=== PATIENT | male | born 1985 | race Caucasian/White ===

== ENCOUNTER → 2016-05-20 | Outpatient (CLI) | payer MEDICARE, BC, OTHER ==
[2016-05-20 11:56] LABS: Basophils # (A) 0.1 k/uL (0-0.2); Basophils % (A) 1 %; CH 29.6; CHCM 33.7; Eosinophils # (A) 0.5 k/uL (0-0.7); Eosinophils % (A) 6 %; HCT 51.2 % (39.0-53.0); HDW 2.45; HGB 16.9 gm/dL (13.0-17.5); Luc # (Auto) 0.21; Luc % (Auto) 3; Lymphocytes # (A) 2.4 k/uL (1.0-4.8); Lymphocytes % (A) 32 %; MCH 29.1 pg (25.0-35.0); MCV 88.1 fL (80.0-100.0); Mean Platelet Volume 8.2; Monocytes # (A) 0.7 k/uL (0-1.0); Monocytes % (A) 10 %; Neutrophils # (A) 3.6 k/uL (1.3-7.7); Neutrophils % (A) 48 %; RBC 5.81 m/uL (4.30-5.90); WBC 7.5 k/uL (3.8-10.6); WBC (Perox) 7.22
== END | disposition home or self-care (01) ==
LOC: LABWHC1 11:10
PROVIDERS: ATTEND Psychiatry & Neurology Neurology
DX: R56.1 Post traumatic seizures (principal)
CPT/HCPCS: 36415; 80164; 84450; 84460; 85025

== ENCOUNTER → 2016-11-04 | Outpatient (CLI) | payer MEDICARE, BC, OTHER ==
[2016-11-04 11:05] LABS: Basophils # (A) 0.1 k/uL (0-0.2); Basophils % (A) 1 %; CH 29.7; CHCM 33.1; Eosinophils # (A) 0.2 k/uL (0-0.7); Eosinophils % (A) 3 %; HCT 49.7 % (39.0-53.0); HDW 2.42; HGB 16.3 gm/dL (13.0-17.5); Luc # (Auto) 0.22; Luc % (Auto) 3; Lymphocytes # (A) 1.8 k/uL (1.0-4.8); Lymphocytes % (A) 28 %; MCH 29.5 pg (25.0-35.0); MCHC 32.8 g/dL (31.0-37.0); MCV 90.1 fL (80.0-100.0); Mean Platelet Volume 8.4; Monocytes # (A) 0.7 k/uL (0-1.0); Monocytes % (A) 10 %; Neutrophils # (A) 3.6 k/uL (1.3-7.7); Neutrophils % (A) 54 %; RBC 5.51 m/uL (4.30-5.90); RDW 12.6 % (11.5-15.5); WBC 6.5 k/uL (3.8-10.6); WBC (Perox) 6.53
== END ==
LOC: LABWHC1 10:23
PROVIDERS: ATTEND Psychiatry & Neurology Neurology
DX: R56.1 Post traumatic seizures (principal)
CPT/HCPCS: 36415; 80164; 84450; 84460; 85025

== ENCOUNTER → 2017-08-18 | Outpatient (CLI) | payer BC, MEDICARE, OTHER ==
[2017-08-18 10:49] LABS: Basophils # (A) 0.1 k/uL (0-0.2); Basophils % (A) 1 %; Eosinophils # (A) 1.3 k/uL (0-0.7); Eosinophils % (A) 18 %; HCT 50.5 % (39.0-53.0); HGB 16.8 gm/dL (13.0-17.5); Lymphocytes % (A) 28 %; MCH 29.6 pg (25.0-35.0); MCHC 33.3 g/dL (31.0-37.0); MCV 88.9 fL (80.0-100.0); Mean Platelet Volume 8.4; Monocytes # (A) 0.6 k/uL (0-1.0); Monocytes % (A) 9 %; Neutrophils # (A) 3.1 k/uL (1.3-7.7); Neutrophils % (A) 42 %; Platelet Count 154 k/uL (150-450); RBC 5.67 m/uL (4.30-5.90); RDW 13.2 % (11.5-15.5); WBC 7.3 k/uL (3.8-10.6)
[2017-08-18 11:02] LABS: Valproic Acid (Depakene) 60.1 ug/mL
== END | disposition home or self-care (01) ==
LOC: LABWHC1 10:20
PROVIDERS: ATTEND Psychiatry & Neurology Neurology
DX: R56.1 Post traumatic seizures (principal)
CPT/HCPCS: 36415; 80164; 84450; 84460; 85025

== ENCOUNTER 2022-01-02 17:35 | Emergency (ER) | payer MEDICARE, OTHER ==
[2022-01-02 18:22] VITALS: BP 124/82; PULSE 92; RESP 22; TEMP 97.8
--- NOTE | 2022-01-02 20:39 | ED ---
Skin/Abscess/FB HPI - General Chief complaint: Recheck/Abnormal Lab/Rx Stated complaint: poss parasites Time Seen by Provider: 01/02/22 18:58 Source: family, RN notes reviewed Mode of arrival: ambulatory Limitations: altered mental status, physical limitation - History of Present Illness Initial comments: This is a 36-year-old male who presents to the emergency department for possible parasites. 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 He does point to his rectum and complain of pain. His mother, who is with him, is not sure how long this has been there. She did bring him to the emergency department with her out of concern for parasites and she is being evaluated as well. States that there have been "black dots ", in his stool and in his bed for the last several days. MD complaint: insect bite/sting - Related Data Previous Rx's Medication Instructions Recorded Albendazole [Albenza] 400 mg PO DIRECTED #4 tablet 01/02/22 Allergies Allergy/AdvReac Type Severity Reaction Status Date / Time No Known Allergies Allergy Verified 01/02/22 18:22 Review of Systems ROS Statement: Those systems with pertinent positive or pertinent negative responses have been documented in the HPI. ROS Other: All systems not noted in ROS Statement are negative. Limitations: ROS unobtainable due to patients medical condition Past Medical History Additional Past Medical History / Comment(s): SLAVA SYNDROME History of Any Multi-Drug Resistant Organisms: None Reported Past Surgical History: No Surgical Hx Reported Past Psychological History: No Psychological Hx Reported Smoking Status: Never smoker Past Alcohol Use History: None Reported Past Drug Use History: None Reported General Exam Limitations: altered mental status, physical limitation General appearance: alert, in no apparent distress Head exam: Present: atraumatic, normocephalic, normal inspection Eye exam: Present: normal appearance, PERRL, EOMI. Absent: scleral icterus, c onjunctival injection, periorbital swelling ENT exam: Present: normal oropharynx, mucous membranes moist, TM's normal bilaterally, normal external ear exam Respiratory exam: Present: normal lung sounds bilaterally. Absent: respiratory distress, wheezes, rales, rhonchi, stridor Cardiovascular Exam: Present: regular rate, normal rhythm, normal heart sounds. Absent: systolic murmur, diastolic murmur, rubs, gallop, clicks GI/Abdominal exam: Present: soft, normal bowel sounds. Absent: distended, t enderness, guarding, rebound, rigid Neurological exam: Present: alert Skin exam: Present: warm, dry, intact, normal color. Absent: rash Course Vital Signs 01/02/22 18:18 Temperature 97.8 F Pulse Rate 92 Respiratory 22 Rate Blood Pressure 124/82 O2 Sat by Pulse 99 Oximetry Medical Decision Making - Medical Decision Making This is a 36-year-old male who presents to the emergency department for possible parasites. Advised that based on the pictures, we cannot make a definitive diagnosis alone, especially as there is no consistency with any of her pictures. We can treat him with an antiparasitic to see if that resolves the symptoms, however I again advised that we cannot be sure that this is the problem. His mother wishes to proceed with the medication. Prescription for Albenza provided. He will take 400 mg at once and then repeat the dose in 2 weeks. Strongly recommended he take a stool sample to his primary care provider's office to try to get a clear diagnosis. Return precautions reviewed in depth, the patient is instructed to return to the emergency department with any new, worsening, or concerning symptoms. Patient verbalized understanding. This case was discussed in detail with the attending ED physician. Presentation, findings, and treatment plan discussed in detail as well. Disposition Clinical Impression: Abnormal findings in stool Disposition: HOME SELF-CARE Instructions (If sedation given, give patient instructions): Albendazole (By abdelrahman newman) Additional Instructions: Return to the emergency department with any new, worsening, or concerning symptoms. The albendazole as 2 tablets at once. Then repeat the dose in 2 weeks. Follow up with your primary care provider in 1-2 days. Prescriptions: Albendazole [Albenza] 400 mg PO DIRECTED #4 tablet Is patient prescribed a controlled substance at d/c from ED?: No Referrals: None,Stated [Primary Care Provider] - 1-2 days
== END 2022-01-02 21:41 | disposition home or self-care (01) ==
LOC: EC 17:35
DX: R19.5 Other fecal abnormalities (principal)
CPT/HCPCS: 99283